=== PATIENT | male | born 2000 ===

== ENCOUNTER 2024-07-05 16:51 | Emergency (ER) | payer SELFPAY ==
[~2024-07-05] VITALS: Ht 172.7 cm; Wt 79.4 kg
[~2024-07-05 16:51] MED LIST: CLIN300 PO; SULFAMETHOXAZO1 EAC1 PO
[2024-07-05 17:28] VITALS: BP 159/72
[2024-07-05] MEDS ORDERED: CEPH500 PO (21:06)
== END 2024-07-05 19:23 | disposition home or self-care (01) ==
LOC: ER 16:51
DX: S91.331A Puncture wound without foreign body, right foot, initial encounter (principal); W11.XXXA Fall on and from ladder, initial encounter
CPT/HCPCS: 73620; 99283-25